=== PATIENT | male | born 1995 | race Caucasian/White ===

== ENCOUNTER 2019-01-25 15:37 | Emergency (ER) | payer MEDICAID ==
[~2019-01-25] VITALS: Ht 175.3 cm; Wt 72.7 kg
[2019-01-25 15:52] VITALS: Ht 175.3 cm; Wt 72.7 kg
[2019-01-25 16:30] LABS: BASOPHILS 0 % (0-2); EOSINOPHILS 0 % (0-7); HEMATOCRIT 39.4 % (42.0-54.0); HEMOGLOBIN 14.4 g/dL (13.5-17.5); IMMATURE GRANULOCYTES 0.2 % (0-5); LYMPHOCYTES 4.5 % (15-50); MCH 31.4 pg (26.0-34.0); MCHC 36.5 g/dL (31.0-37.0); MCV 85.8 fL (80.0-100.0); MEAN PLATELET VOLUME 9.2 fL (7.4-10.4); MONOCYTES 4.2 % (2-11); NEUTROPHILS 91.1 % (40-80); PLATELET COUNT 111 10x3/uL (130-400); RBC 4.59 10x6/uL (4.20-6.10); WBC 4.5 10x3/uL (4.8-10.8)
[2019-01-25 16:45] LABS: ALBUMIN 3.9 g/dL (3.4-5.0); ALKALINE PHOSPHATASE 63 U/L (46-116); ALT (SGPT) 48 U/L (10-68); BILIRUBIN - TOTAL 0.56 mg/dL (0.2-1.3); CALC OSMOLALITY 268 mosm/kg (275-300); CALCIUM 8.7 mg/dL (8.5-10.1); CHLORIDE - SERUM 98 mmol/L (98-107); CREATININE - SERUM 1.1 mg/dL (0.6-1.3); GLUCOSE 169 mg/dL (74-106); POTASSIUM - SERUM 3.4 mmol/L (3.5-5.1); PROTEIN - SERUM 7.1 g/dL (6.4-8.2); SODIUM 133 mmol/L (136-145); UREA NITROGEN 10 mg/dL (7-18); eGFR NON AFRICAN AMERICAN 87 mL/min (90-120)
[2019-01-25 16:53] LABS: AMYLASE - SERUM 40 U/L (25-115); LIPASE 95 U/L (73-393)
[2019-01-25 16:55] LABS: TROPONIN-I < 0.017 ng/mL (0.000-0.060)
[2019-01-25 18:04] LABS: APPEARANCE CLEAR (CLEAR); BILIRUBIN NEGATIVE (NEGATIVE); COLOR YELLOW (YELLOW); GLUCOSE NEGATIVE (NEGATIVE); KETONE MODERATE mg/dL (NEGATIVE); NITRITE NEGATIVE (NEGATIVE); PROTEIN TRACE mg/dL (NEGATIVE); SPECIFIC GRAVITY 1.015 (1.005-1.020); UROBILINOGEN NORMAL (NORMAL)
[2019-01-25] MEDS ORDERED: ZOFRAN ODT4 MG/UDTAB PO (19:21)
[2019-01-25] MEDS ORDERED: LOMOTIL 2.5-0.1 EAC1 PO (19:21)
[2019-01-25 20:45] VITALS: BP 130/72
== END 2019-01-25 20:23 | disposition home or self-care (01) ==
LOC: D.ER 15:37
PROVIDERS: Family Medicine
DX: A08.4 Viral intestinal infection, unspecified (principal); R50.9 Fever, unspecified